=== PATIENT | female | born 1945 | race Caucasian/White ===

== ENCOUNTER 2018-06-16 15:05 | Emergency (ER) | payer OTHER, MEDICAID ==
[~2018-06-16] VITALS: Ht 154.9 cm; Wt 78.0 kg
[2018-06-16 15:15] VITALS: BP 139/64
--- NOTE | 2018-06-16 15:26 | NUR ---
PT TRIAGED AT BEDSIDE. BIB EMS C/O LOW BLOOD GLUCOSE 44 AND WEAKNESS. PT DRANK ORANGE JUICED AND CALLED 911. PER EMS BS 73, D10 GIVEN. REPEAT BS 231. PT A&OX4, BREATHING EVEN AND UNLABORED. DENIES PAIN. 18G SL NOTED TO R AC. BS 195 AT TRIAGE. NSR ON MONITOR. HX: DIABETES, HTN, "THYROID PROBLEM" RX: ASA, METFORMIN, GLIPIZIDE, JANUVIA.
--- NOTE | 2018-06-16 16:05 | NUR ---
PT PROVIDED WITH REGULAR DIET TRAY AND ORANGE JUICE ORDERED. PT EATING AT THIS TIME.
[2018-06-16 16:11] LABS: BASOPHILS % (AUTO) 0.3 % (0.0-2.0); EOSINOPHILS # (AUTO) 0.2 K/uL (0-0.4); EOSINOPHILS % (AUTO) 2.7 % (0.0-4.0); HEMATOCRIT 36.2 % (36-48); HEMOGLOBIN 11.7 g/dL (12.0-16.0); LYMPHOCYTES # (AUTO) 1.2 K/uL (2.5-16.5); LYMPHOCYTES % (AUTO) 19.1 % (20.5-51.1); MEAN CORPUSCULAR HEMOGLOBIN 29 pg (27-31); MEAN CORPUSCULAR HGB CONC 32 g/dL (33-37); MEAN CORPUSCULAR VOLUME 91.2 fL (80-94); MONOCYTES # (AUTO) 0.4 K/uL (0.8-1.0); MONOCYTES % (AUTO) 6.2 % (1.7-9.3); NEUTROPHILS # (AUTO) 4.6 K/uL (1.8-7.7); NEUTROPHILS % (AUTO) 71.7 % (42.2-75.2); PLATELET COUNT (AUTO) 165 K/uL (140-450); RED BLOOD CELL COUNT(AUTO) 3.96 MIL/uL (4.20-5.40); RED CELL DISTRIBUTION WIDTH 17.2 % (11.6-13.7); WHITE BLOOD COUNT (AUTO) 6.5 K/uL (4.8-10.8)
[2018-06-16 16:11] LABS: APPEARANCE,URINE CLEAR (CLEAR); BILIRUBIN,URINE NEGATIVE (NEGATIVE); BLOOD, URINE TRACE-L (NEGATIVE); COLOR,URINE YELLOW (YELLOW); LEUKOCYTE ESTERASE ,URINE TRACE (NEGATIVE); NITRITE, URINE NEGATIVE (NEGATIVE); UGLUCOSE NEGATIVE (NEGATIVE)
--- NOTE | 2018-06-16 16:23 | NUR ---
PT AMBULATED TO RESTROOM AND BACK TO [place] WITH STEADY GAIT, WITHOUT INCIDENT. PT'S FAMILY AT BEDSIDE. PT EATING MEAL PROVIDED, TOLERATING WELL.
--- NOTE | 2018-06-16 16:30 | NUR ---
PT CONSUMED 100% OF MEAL AND JUICE PROVIDED. STS "I FEEL MUCH BETTER." PT THANKFUL
[2018-06-16 16:31] LABS: RBC,URINE 0-5 /HPF (0-5); WBC,URINE 0-5 /HPF (0-5)
[2018-06-16 16:33] LABS: ALBUMIN 3.2 g/dL (3.4-5.0); ANION GAP 9.3 (8-16); ASPARTATE AMINOTRANSFERASE 19 U/L (15-37); CHLORIDE 107 mmol/L (98-107); CREATININE 0.8 mg/dL (0.6-1.3); GLUCOSE 186 mg/dL (74-106); POTASSIUM 4.3 mmol/L (3.5-5.1); SODIUM SERUM 143 mmol/L (136-145); TOTAL BILIRUBIN 0.2 mg/dL (0.0-1.0); UREA NITROGEN, BLOOD 13 mg/dL (7-18)
--- NOTE | 2018-06-16 17:36 | NUR ---
AWAITING DISPOSITION. PT STS "I WANT TO GO HOME."
--- NOTE | 2018-06-16 18:38 | NUR ---
Patient discharged with v/s stable. Written and verbal after care instructions given and explained. Patient verbalized understanding. Ambulatory with steady gait. All questions addressed prior to discharge. Advised to follow up with PMD. Addendum: 06/16/18 at 1841 by [facility] IV D/CD WITH ANGIOCATH INTACT
[2018-06-16 18:39] VITALS: BP 122/50
--- NOTE | 2018-06-16 18:47 | NUR ---
Qasim wise in EDM - 06/16/18 at 1849 by [facility] PT'S FAMILY AT BEDSIDE. PT'S SON WENT HOME TO [facility] FOR MED REQ. PT'S CHEST PAIN DECREASED 04/21.
== END 2018-06-16 18:38 | disposition home or self-care (01) ==
LOC: MED 15:05
DX: E11.649 Type 2 diabetes mellitus with hypoglycemia without coma (principal); I10 Essential (primary) hypertension; Z88.0 Allergy status to penicillin
CPT/HCPCS: 36415; 80053; 81001; 84484; 85025; 93005; 99284

== ENCOUNTER 2021-01-03 15:42 | Emergency (ER) | payer OTHER, MEDICAID ==
[~2021-01-03] VITALS: Ht 152.4 cm; Wt 72.6 kg
[2021-01-03 15:45] VITALS: BP 113/76
--- NOTE | 2021-01-03 15:50 | NUR ---
PT TAKEN TO ER BED 9 VIA W/C.
--- NOTE | 2021-01-03 15:52 | NUR ---
CODE BRAIN ACTIVATED BY DR. SNYDER. CT CONTACTED.
--- NOTE | 2021-01-03 15:53 | NUR ---
PATIENT TRANSPORTED TO CT BY [facility], TELEMETRY MONITORING IN PLACE, ACCOMPANIED BY RN.
--- NOTE | 2021-01-03 16:00 | NUR ---
75 Y/O F BIB DAUGHTER FROM HOME, PATIENT PRESENTS TO ED POST MECHANICAL FALL, PT STATES SHE FELL WHILE WALKING, SLIPPED ON JUICE AND FELL BACKWARDS AND HIT HEAD. UPON ASSESSMENT, PT HAS VISIBLE EDEMA, NO LAC OR ABRASION. DENIES N/V/D, BLURRY VISION OR DOUBLE VISION; UPPER AND LOWER EXTREMITIES STRONG BILATERALLY. SKIN IS PINK/WARM/DRY; AAOX4 ; LUNGS CLEAR BL; HR EVEN AND REGULAR; PT DENIES ANY FEVER, CP, SOB, OR COUGH AT THIS TIME; PATIENT STATES PAIN OF 9/10 AT THIS TIME; VSS; PATIENT POSITIONED FOR COMFORT; HOB ELEVATED; BEDRAILS UP X2; BED DOWN. ER MD MADE AWARE OF PT STATUS. PMH: DM, HTN ALLERGY: PENICILLIN MED: ATORVASTATIN
--- NOTE | 2021-01-03 16:14 | NUR ---
NO C-COLLARS IN STOCK. PER DR CLAUDIO VILCHIS TO PLACE 2 TOWELS AROUND NECK FOR SUPPORT.
[2021-01-03] MEDS ORDERED: ACETAMINOPHEN EXTRA STRENGTH 500 MG TAB PO ONE (16:15)
[2021-01-03] MEDS ORDERED: ONDANSETRON 4 MG ODT PO ONE (16:15)
--- NOTE | 2021-01-03 16:15 | NUR ---
75 Y/O FEMALE C/O HEAD PAIN & SWELLING S/P FALL X TODAY. DENIES LOC. BLOOD SUGAR 192 AT THIS TIME. PT STAES FELL AND HIT HER HEAD ON CONCRETE. STATES 9/10 PRESSURE PAIN. DAUGTHER AT BEDSIDE PMH: DM, HTN, ASTHMA ALLERGIES: PCN
--- NOTE | 2021-01-03 16:24 | NUR ---
PT TAKEN TO RESTROOM VIA W/C.
[2021-01-03] MEDS ORDERED: ONDA-24 SL (17:42)
[2021-01-03] MEDS ORDERED: NAPR-54 PO (17:42)
[2021-01-03 17:55] VITALS: BP 141/63
--- NOTE | 2021-01-03 17:57 | NUR ---
Patient discharged with v/s stable. Written and verbal after care instructions given and explained. Patient alert, oriented and verbalized understanding of instructions. Ambulatory with to car. All questions addressed prior to discharge. ID band removed. Patient advised to follow up with PMD. Rx of ONDANSETRON, NAPROXEN given. Patient educated on indication of medication including possible reaction and side effects. Opportunity to ask questions provided and answered.
== END 2021-01-03 17:56 | disposition home or self-care (01) ==
LOC: MED 15:42
DX: S06.0X9A Concussion with loss of consciousness of unspecified duration, initial encounter (principal); S00.03XA Contusion of scalp, initial encounter; M54.2 Cervicalgia; E11.9 Type 2 diabetes mellitus without complications; I10 Essential (primary) hypertension; E07.9 Disorder of thyroid, unspecified; Z88.0 Allergy status to penicillin; Z90.49 Acquired absence of other specified parts of digestive tract; Z79.899 Other long term (current) drug therapy; Z98.890 Other specified postprocedural states; W01.0XXA Fall on same level from slipping, tripping and stumbling without subsequent striking against object, initial encounter; Y93.89 Activity, other specified; Y92.89 Other specified places as the place of occurrence of the external cause; Y99.8 Other external cause status
CPT/HCPCS: 70450; 72125; 99285; Q0162